=== PATIENT | female | born 1945 | race Caucasian/White ===

== ENCOUNTER 2021-06-08 13:41 | Emergency (ER) | payer OTHER ==
[~2021-06-08] VITALS: Ht 165.1 cm; Wt 65.8 kg
[2021-06-08 13:41] VITALS: BP_SYST 125
[~2021-06-08 13:41] MED LIST: ASPI-862 PO; BENA40TA8 PO; HYDR-3919 PO; RANI150T8 PO
--- NOTE | 2021-06-08 13:44 | NUR ---
BROUGHT IN BY [facility] AND AWAITING AVAILABLE ER BED.
--- NOTE | 2021-06-08 14:45 | NUR ---
ER at bedside examining patient.
--- NOTE | 2021-06-08 14:54 | NUR ---
Pt. bib BLS from home with c/o 8 lower abd. pain since 0900 and then had an episode of diarrhea at home and felt "fuzzy" so called 911, states has hx. of diverticulitis
[2021-06-08] MEDS ORDERED: MORPHINE 2 MG/ML INJ. SYRINGE IVP ONE (15:00)
[2021-06-08] MEDS ORDERED: ONDANSETRON HCL 4 MG/2 ML VIAL IVP ONE (15:00)
[2021-06-08 15:21] LABS: BASOPHILS % (AUTO) 0.2 % (0.0-2.0); EOSINOPHILS # (AUTO) 0.1 K/uL (0.0-0.4); EOSINOPHILS % (AUTO) 0.6 % (0.0-4.0); HEMATOCRIT 47.8 % (36-48); HEMOGLOBIN 15.6 g/dL (12.0-16.0); LYMPHOCYTES # (AUTO) 0.8 K/uL (1.0-5.5); LYMPHOCYTES % (AUTO) 6.2 % (20.5-51.5); MEAN CORPUSCULAR HEMOGLOBIN 29 pg (27-31); MEAN CORPUSCULAR HGB CONC 33 % (32-36); MEAN CORPUSCULAR VOLUME 89 fL (79.0-98.0); MONOCYTES # (AUTO) 0.5 K/uL (0.0-1.0); MONOCYTES % (AUTO) 3.6 % (1.7-9.3); NEUTROPHILS # (AUTO) 11.3 K/uL (1.8-7.7); NEUTROPHILS % (AUTO) 89.4 % (40.0-70.0); PLATELET COUNT (AUTO) 150 K/uL (130-430); RED BLOOD CELL COUNT(AUTO) 5.37 MIL/uL (4.2-6.2); RED CELL DISTRIBUTION WIDTH 14.3 % (9.0-15.0); WHITE BLOOD COUNT (AUTO) 12.7 K/uL (4.8-10.8)
[2021-06-08 15:35] LABS: ANION GAP 7 (5-15); CALCIUM 9.7 mg/dL (8.4-11.0); CHLORIDE 106 mmol/L (98-107); CREATININE 1.04 mg/dL (0.55-1.30); GLUCOSE 168 mg/dL (70-99); POTASSIUM 3.9 mmol/L (3.5-5.1); SODIUM SERUM 142 mmol/L (136-145); UREA NITROGEN, BLOOD 21 mg/dL (8-21)
[2021-06-08 15:44] LABS: ALANINE AMINOTRANSFERASE 25 U/L (12-78); ALBUMIN 3.9 g/dL (3.4-4.8); ASPARTATE AMINOTRANSFERASE 24 U/L (10-37); LIPASE 95 U/L (73-393); TOTAL BILIRUBIN 0.7 mg/dL (0.0-1.0)
--- NOTE | 2021-06-08 15:45 | NUR ---
returned from [place]
[2021-06-08 16:24] LABS: BILIRUBIN,URINE 1+ (NEGATIVE); BLOOD, URINE NEGATIVE (NEGATIVE); GLUCOSE,URINE NEGATIVE (NEGATIVE); KETONES,URINE TRACE (NEGATIVE); LEUKOCYTE ESTERASE ,URINE NEGATIVE (NEGATIVE); NITRITE, URINE NEGATIVE (NEGATIVE); PROTEIN URINE NEGATIVE (NEGATIVE)
[2021-06-08] MEDS ORDERED: CIPR500T5 PO (16:44)
[2021-06-08] MEDS ORDERED: METR500T PO (16:44)
[2021-06-08 17:07] LABS: COLOR,URINE AMBER (YELLOW)
[2021-06-08 17:11] LABS: CLARITY/URINE SLIGHTLY HAZY (CLEAR)
[2021-06-08 17:22] VITALS: BP_SYST 128
--- NOTE | 2021-06-08 17:23 | NUR ---
Patient given written and verbal discharge instructions and verbalizes understanding. Dr. Salazar discussed with patient the results and treatment provided. Patient in stable condition. ID arm band removed. IV catheter removed intact and dressing applied, no active bleeding. Rx of Cipro and Flagyl given. Patient educated on pain management and to follow up with PMD. Pain Scale 4. Opportunity for questions provided and answered. Medication side effect fact sheet provided.
== END 2021-06-08 17:23 | disposition home or self-care (01) ==
LOC: SED 13:41
DX: R10.32 Left lower quadrant pain (principal); I10 Essential (primary) hypertension; Z88.0 Allergy status to penicillin; Z88.2 Allergy status to sulfonamides; Z88.1 Allergy status to other antibiotic agents; Z79.899 Other long term (current) drug therapy
CPT/HCPCS: 36415; 74176; 76376; 80053; 81003; 83690; 84484; 85025; 93005; 96374; 96375; 99285; J2270; J2405

== ENCOUNTER 2023-04-10 12:36 | Emergency (ER) | payer OTHER ==
[~2023-04-10] VITALS: Ht 170.2 cm; Wt 72.6 kg
[~2023-04-10 12:36] MED LIST changes: -BENA40TA8 PO; +BENA40TA89 PO; +CIPR500T5 PO; +METR500T PO
[2023-04-10 12:40] VITALS: BP_SYST 148; PULSE 90; RESP 18; TEMP 97.8; O2SAT 98
[2023-04-10] MEDS ORDERED: NACL 0.9% 1,000 ML IV ONE (13:15)
[2023-04-10] MEDS ORDERED: ONDANSETRON HCL 4 MG/2 ML VIAL IVP ONE (13:15)
[2023-04-10 13:35] LABS: BASOPHILS % (AUTO) 0.7 % (0.0-2.0); EOSINOPHILS # (AUTO) 0.1 K/uL (0.0-0.4); EOSINOPHILS % (AUTO) 2.3 % (0.0-4.0); HEMATOCRIT 45.6 % (36-48); HEMOGLOBIN 14.9 g/dL (12.0-16.0); LYMPHOCYTES # (AUTO) 1.6 K/uL (1.0-5.5); LYMPHOCYTES % (AUTO) 26.3 % (20.5-51.5); MEAN CORPUSCULAR HEMOGLOBIN 30 pg (27-31); MEAN CORPUSCULAR HGB CONC 33 % (32-36); MEAN CORPUSCULAR VOLUME 91 fL (79.0-98.0); MONOCYTES # (AUTO) 0.6 K/uL (0.0-1.0); MONOCYTES % (AUTO) 9.8 % (1.7-9.3); NEUTROPHILS # (AUTO) 3.7 K/uL (1.8-7.7); NEUTROPHILS % (AUTO) 60.9 % (40.0-70.0); PLATELET COUNT (AUTO) 167 K/uL (130-430); RED BLOOD CELL COUNT(AUTO) 5.03 MIL/uL (4.2-6.2); RED CELL DISTRIBUTION WIDTH 14.6 % (9.0-15.0); WHITE BLOOD COUNT (AUTO) 6.1 K/uL (4.8-10.8)
[2023-04-10] MEDS ORDERED: MORPHINE 2 MG/ML INJ. SYRINGE ONE (13:43)
[2023-04-10] MEDS ORDERED: MORPHINE 2 MG/ML INJ. SYRINGE IVP ONE (13:45)
[2023-04-10 13:58] LABS: ALANINE AMINOTRANSFERASE 24 U/L (12-78); ALBUMIN 3.7 g/dL (3.4-4.8); ANION GAP 6 (5-15); ASPARTATE AMINOTRANSFERASE 23 U/L (10-37); CALCIUM 9.5 mg/dL (8.4-11.0); CARBON DIOXIDE 29 mmol/L (23-29); CHLORIDE 106 mmol/L (98-107); CREATININE 0.77 mg/dL (0.55-1.30); GLUCOSE 114 mg/dL (74-106); LIPASE 40 U/L (73-393); POTASSIUM 3.8 mmol/L (3.5-5.1); SODIUM SERUM 141 mmol/L (136-145); TOTAL BILIRUBIN 0.4 mg/dL (0.0-1.0); TOTAL PROTEIN, SERUM 7.3 g/dL (6.4-8.3); UREA NITROGEN, BLOOD 18 mg/dL (8-21)
[2023-04-10] MEDS ORDERED: PANTOPRAZOLE SODIUM 40 MG/VIAL (PROTONIX) IVP ONE (14:30)
[2023-04-10 16:23] LABS: BILIRUBIN,URINE NEGATIVE (NEGATIVE); CLARITY/URINE CLEAR (CLEAR); COLOR,URINE YELLOW (YELLOW); GLUCOSE,URINE NEGATIVE (NEGATIVE); KETONES,URINE NEGATIVE (NEGATIVE); LEUKOCYTE ESTERASE ,URINE NEGATIVE (NEGATIVE); NITRITE, URINE NEGATIVE (NEGATIVE); PH,URINE 5.5 (5.0-8.0); PROTEIN URINE NEGATIVE (NEGATIVE); UROBILINOGEN,URINE 0.2 (0.2-1.0)
[2023-04-10 16:25] LABS: BLOOD, URINE TRACE (NEGATIVE)
[2023-04-10] MEDS ORDERED: OMEP40CA20 PO (16:41)
[2023-04-10] MEDS ORDERED: ONDA-8 TL (16:41)
[2023-04-10 16:57] LABS: BACTERIA,URINE RARE /HPF (None Seen)
[2023-04-10 16:58] VITALS: BP_SYST 139; PULSE 81; RESP 18; TEMP 97.8; O2SAT 98
== END 2023-04-10 16:55 | disposition home or self-care (01) ==
LOC: SED 12:36
DX: K42.9 Umbilical hernia without obstruction or gangrene (principal); K21.9 Gastro-esophageal reflux disease without esophagitis; R10.13 Epigastric pain; R10.33 Periumbilical pain; I10 Essential (primary) hypertension; Z88.0 Allergy status to penicillin; Z88.1 Allergy status to other antibiotic agents; Z88.2 Allergy status to sulfonamides; Z79.899 Other long term (current) drug therapy
CPT/HCPCS: 99285; 74176; 96374; 96375; 96361; 80053; 81000; 83690; 85025; 36415; 76376; J2405; C9113; J2270; J7030

== ENCOUNTER 2023-10-29 15:32 | Observation (INO) | payer OTHER ==
[~2023-10-29] VITALS: Ht 167.6 cm; Wt 82.8 kg
[~2023-10-29 15:32] MED LIST changes: +OMEP40CA20 PO; +ONDA-8 TL
[2023-10-29 15:40] VITALS: BP_SYST 139; PULSE 93; RESP 16; TEMP 97.8; O2SAT 95
[2023-10-29 16:22] LABS: BASOPHILS % (AUTO) 0.6 % (0.0-2.0); EOSINOPHILS # (AUTO) 0.6 K/uL (0.0-0.4); EOSINOPHILS % (AUTO) 9.7 % (0.0-4.0); HEMATOCRIT 39.3 % (36-48); HEMOGLOBIN 13.3 g/dL (12.0-16.0); LYMPHOCYTES # (AUTO) 1.3 K/uL (1.0-5.5); LYMPHOCYTES % (AUTO) 19.2 % (20.5-51.5); MEAN CORPUSCULAR HEMOGLOBIN 29 pg (27-31); MEAN CORPUSCULAR HGB CONC 34 % (32-36); MEAN CORPUSCULAR VOLUME 87 fL (79.0-98.0); MONOCYTES # (AUTO) 0.9 K/uL (0.0-1.0); MONOCYTES % (AUTO) 14.2 % (1.7-9.3); NEUTROPHILS # (AUTO) 3.7 K/uL (1.8-7.7); NEUTROPHILS % (AUTO) 56.3 % (40.0-70.0); PLATELET COUNT (AUTO) 172 K/uL (130-430); RED BLOOD CELL COUNT(AUTO) 4.53 MIL/uL (4.2-6.2); RED CELL DISTRIBUTION WIDTH 14.6 % (9.0-15.0); WHITE BLOOD COUNT (AUTO) 6.5 K/uL (4.8-10.8)
[2023-10-29 16:45] LABS: ANION GAP 7 (5-15); CALCIUM 9.1 mg/dL (8.4-11.0); CARBON DIOXIDE 31 mmol/L (23-29); CHLORIDE 105 mmol/L (98-107); CREATININE 0.91 mg/dL (0.55-1.30); GLUCOSE 111 mg/dL (74-106); POTASSIUM 3.5 mmol/L (3.5-5.1); SODIUM SERUM 143 mmol/L (136-145); UREA NITROGEN, BLOOD 17 mg/dL (8-21)
[2023-10-29] MEDS ORDERED: ISOS60TA71 PO (16:46)
[2023-10-29] MEDS ORDERED: FERR236T3 PO (16:46)
[2023-10-29] MEDS ORDERED: SIMV-43 PO (16:46)
[2023-10-29] MEDS ORDERED: CYAN100T44 PO (16:46)
[2023-10-29] MEDS ORDERED: METO-304 PO (16:46)
[2023-10-29] MEDS ORDERED: BENA-6 PO (16:46)
[2023-10-29] MEDS ORDERED: PANT40TA45 PO (16:46)
[2023-10-29] MEDS ORDERED: ASPI-1155 PO (16:46)
[2023-10-29] MEDS ORDERED: iohexoL 350 mgI/mL, 100 ML INFUS..BTL IV ONE (17:02)
[2023-10-29] MEDS ORDERED: HYDROcodone/ACETAMIN 10-325 MG TAB PO PRN (21:45)
[2023-10-29] MEDS ORDERED: MORPHINE 2 MG/ML INJ. SYRINGE IVP PRN (21:45)
[2023-10-29] MEDS ORDERED: ONDANSETRON HCL 4 MG/2 ML VIAL IVP PRN (21:45)
[2023-10-29] MEDS: ASPIRIN 325 MG TABLET PO ONE (22:19)
[2023-10-29] MEDS: SIMVASTATIN 20 MG TABLET PO SCH (22:20)
[2023-10-29] MEDS: ACETAMINOPHEN 325 MG TABLET PO PRN (22:20)
[2023-10-29] MEDS: PANTOPRAZOLE SODIUM 40 MG/VIAL (PROTONIX) IVP SCH (22:20)
[2023-10-29] MEDS: SIMVASTATIN 20 MG TABLET ONE (22:32)
[2023-10-29 23:47] VITALS: BP_SYST 123; PULSE 78; RESP 18; TEMP 96.5; O2SAT 97
[2023-10-30] VITALS (8 sets, daily range): BP systolic 99–129; PULSE 72–82; RESP 16–18; TEMP 97–98.2; O2SAT 92–97
[2023-10-30] MEDS: HYDROcodone/ACETAMIN 5-325 MG TAB (NORCO/ VICODIN) PO PRN (00:10)
[2023-10-30 04:28] LABS: BASOPHILS % (AUTO) 0.3 % (0.0-2.0); EOSINOPHILS # (AUTO) 0.8 K/uL (0.0-0.4); EOSINOPHILS % (AUTO) 11.9 % (0.0-4.0); HEMATOCRIT 37.7 % (36-48); HEMOGLOBIN 12.6 g/dL (12.0-16.0); LYMPHOCYTES # (AUTO) 1.7 K/uL (1.0-5.5); MEAN CORPUSCULAR HEMOGLOBIN 29 pg (27-31); MEAN CORPUSCULAR HGB CONC 33 % (32-36); MEAN CORPUSCULAR VOLUME 88 fL (79.0-98.0); MONOCYTES # (AUTO) 0.8 K/uL (0.0-1.0); MONOCYTES % (AUTO) 12.6 % (1.7-9.3); NEUTROPHILS # (AUTO) 3.2 K/uL (1.8-7.7); NEUTROPHILS % (AUTO) 49.2 % (40.0-70.0); PLATELET COUNT (AUTO) 175 K/uL (130-430); RED BLOOD CELL COUNT(AUTO) 4.31 MIL/uL (4.2-6.2); RED CELL DISTRIBUTION WIDTH 14.2 % (9.0-15.0); WHITE BLOOD COUNT (AUTO) 6.5 K/uL (4.8-10.8)
[2023-10-30 04:51] LABS: ALANINE AMINOTRANSFERASE 14 U/L (12-78); ALBUMIN 2.7 g/dL (3.4-4.8); ANION GAP 7 (5-15); ASPARTATE AMINOTRANSFERASE 16 U/L (10-37); CALCIUM 8.6 mg/dL (8.4-11.0); CARBON DIOXIDE 31 mmol/L (23-29); CHLORIDE 107 mmol/L (98-107); CREATININE 0.71 mg/dL (0.55-1.30); GLUCOSE 88 mg/dL (74-106); POTASSIUM 3.4 mmol/L (3.5-5.1); SODIUM SERUM 145 mmol/L (136-145); TOTAL BILIRUBIN 0.5 mg/dL (0.0-1.0); TOTAL PROTEIN, SERUM 5.9 g/dL (6.4-8.3); UREA NITROGEN, BLOOD 14 mg/dL (8-21)
[2023-10-30] MEDS ORDERED: BENAZEPRIL HCL 20 MG TABLET (LOTENSIN) PO SCH (09:00)
[2023-10-30] MEDS: ASPIRIN 81 MG TAB.CHEW PO SCH (09:04)
[2023-10-30] MEDS: LISINOPRIL 10 MG TABLET (PRINIVIL) PO SCH (09:06)
[2023-10-30] MEDS: ISOSORBIDE MONONITRATE 30 MG TAB.ER.24H PO SCH (09:07)
[2023-10-30] MEDS: METOPROLOL SUCCINATE 25 MG TAB.SR.24H (TOPROL XL) PO SCH (09:08)
[2023-10-30] MEDS ORDERED: NITROGLYCERIN 0.4 MG TAB.SUBL SL PRN (14:15)
[2023-10-30 14:36] LABS: CHOLESTEROL 86 mg/dL (<200); HDL CHOLESTEROL 43 mg/dL (>55); TRIGLYCERIDES 60 mg/dL (30-150)
[2023-10-30] MEDS: IPRATROPIUM BROM 0.5 MG/2.5 ML VIAL.NEB (ATROVENT) INH PRN (20:41)
[2023-10-31 00:07] VITALS: BP_SYST 97; PULSE 74; RESP 16; TEMP 97.4; O2SAT 95
[2023-10-31 01:16] VITALS: BP_SYST 105
[2023-10-31 01:20] VITALS: O2SAT 92
[2023-10-31 05:01] LABS: BASOPHILS % (AUTO) 0.6 % (0.0-2.0); EOSINOPHILS # (AUTO) 0.6 K/uL (0.0-0.4); EOSINOPHILS % (AUTO) 8.5 % (0.0-4.0); HEMATOCRIT 38.3 % (36-48); HEMOGLOBIN 12.9 g/dL (12.0-16.0); LYMPHOCYTES # (AUTO) 1.7 K/uL (1.0-5.5); LYMPHOCYTES % (AUTO) 25.3 % (20.5-51.5); MEAN CORPUSCULAR HEMOGLOBIN 29 pg (27-31); MEAN CORPUSCULAR HGB CONC 34 % (32-36); MEAN CORPUSCULAR VOLUME 87 fL (79.0-98.0); MONOCYTES # (AUTO) 0.9 K/uL (0.0-1.0); MONOCYTES % (AUTO) 12.7 % (1.7-9.3); NEUTROPHILS # (AUTO) 3.7 K/uL (1.8-7.7); NEUTROPHILS % (AUTO) 52.9 % (40.0-70.0); PLATELET COUNT (AUTO) 178 K/uL (130-430); RED CELL DISTRIBUTION WIDTH 14.1 % (9.0-15.0); WHITE BLOOD COUNT (AUTO) 6.9 K/uL (4.8-10.8)
[2023-10-31 05:38] LABS: ALANINE AMINOTRANSFERASE 13 U/L (12-78); ALBUMIN 2.7 g/dL (3.4-4.8); ANION GAP 8 (5-15); ASPARTATE AMINOTRANSFERASE 28 U/L (10-37); CALCIUM 9.1 mg/dL (8.4-11.0); CARBON DIOXIDE 30 mmol/L (23-29); CHLORIDE 105 mmol/L (98-107); CREATININE 0.73 mg/dL (0.55-1.30); GLUCOSE 92 mg/dL (74-106); POTASSIUM 3.5 mmol/L (3.5-5.1); SODIUM SERUM 143 mmol/L (136-145); TOTAL BILIRUBIN 0.6 mg/dL (0.0-1.0); TOTAL PROTEIN, SERUM 5.9 g/dL (6.4-8.3); UREA NITROGEN, BLOOD 13 mg/dL (8-21)
[2023-10-31 07:52] VITALS: BP_SYST 129; PULSE 82; RESP 18; TEMP 98.1; O2SAT 95
[2023-10-31 11:06] VITALS: BP_SYST 127; PULSE 84; RESP 16; TEMP 97.5; O2SAT 94
[2023-10-31] MEDS ORDERED: ALBMDI INH (14:34)
[2023-10-31 14:56] VITALS: BP_SYST 127; PULSE 84; RESP 16; TEMP 97.5
== END 2023-10-31 15:30 | disposition home or self-care (01) ==
LOC: SED 15:32 → STU 21:36 → INTOOBSV 21:39 → STU 21:39
PROVIDERS: ADMIT Family Medicine; ATTEND Family Medicine
DX: R07.89 Other chest pain (principal); E78.5 Hyperlipidemia, unspecified; K76.0 Fatty (change of) liver, not elsewhere classified; I25.10 Atherosclerotic heart disease of native coronary artery without angina pectoris; I42.9 Cardiomyopathy, unspecified; I10 Essential (primary) hypertension; I34.0 Nonrheumatic mitral (valve) insufficiency; Z79.899 Other long term (current) drug therapy; Z88.0 Allergy status to penicillin
CPT/HCPCS: 80048; 96374; 83880; 85025 ×3; 87081; 84484 ×2; 36415 ×3; 71045; 71275; 99285; 96376 ×2; 80053 ×2; 80061; 83037; 93005; 93306; 94640 ×2; 94070; Q9967; C9113 ×3; G0378 ×3